=== PATIENT | male | born 1955 | race Caucasian/White ===

== ENCOUNTER 2017-07-09 22:08 | Inpatient (IN) | payer MEDICARE, MEDICAID ==
[~2017-07-09] VITALS: Ht 167.6 cm; Wt 89.5 kg
[~2017-07-09 22:08] MED LIST: ALBUTEROL INHAL17 GM IH; DOXYCYCLINE 10100 MG PO; FLAGYL500 MG PO; LEVAQUIN 750 M750 MG PO; PREDNISONE 20 M20 MG PO; TRAMADOL 50 MG50 MG PO; VENTOLIN HFA 1818 GM INH; [UNRECOGNIZED DRUG - REMARK]
[2017-07-09 22:09] VITALS: BP 119/48
[2017-07-09 22:32] LABS: WBC 2.4 thou/uL (4.0-11.0)
[2017-07-09 22:38] LABS: HEMOGLOBIN 7.9 gm/dL (14.0-18.0)
[2017-07-09 22:40] LABS: HEMATOCRIT 25.4 % (42.0-52.0); MCH 21.5 pg (26.0-34.0); MCV 69.5 fL (80.0-100.0); MPV 8.6 fl. (7.2-11.1); NUCLEATED RBCS 0 /100WBC; RBC 3.66 mil/uL (4.50-6.00); RDW-CV 22.8 % (10.5-14.5)
[2017-07-09 22:42] LABS: PLATELET COUNT* 36 thou/uL (150-400)
[2017-07-09 22:53] LABS: ANION GAP 7 mmol/L (7-16); BUN 12 mg/dL (7-18); CALCIUM 8.1 mg/dL (8.5-10.1); CHLORIDE 108 mmol/L (98-107); CO2 28 mmol/L (21-32); GLUCOSE 138 mg/dL (70-99); POTASSIUM 3.6 mmol/L (3.5-5.1); SODIUM 143 mmol/L (136-145)
[2017-07-09 22:54] LABS: ALBUMIN 2.8 g/dL (3.4-5.0); ALKALINE PHOSPHATASE 218 U/L (46-116); LIPASE 292 U/L (73-393); NT-PRO BRAIN NAT PEPTIDE 63 pg/mL (<300); SGOT 39 U/L (15-37); SGPT 24 U/L (30-65); TOTAL PROTEIN 7.1 g/dL (6.4-8.2); TROPONIN-I LEVEL <0.06 ng/mL (<0.06)
[2017-07-09 23:05] LABS: BE 1.6 mmol/L (-2 to +3); HCO3 25.5 mmol/L (22.0-26.0); PCO2 37.1 mmHg (35.0-45.0); PO2 87.1 mmHg (75.0-100.0); pH 7.455 (7.340-7.450)
[2017-07-09 23:52] LABS: URINE BLOOD NEGATIVE (Negative); URINE CLARITY CLEAR; URINE COLOR YELLOW; URINE GLUCOSE-RANDOM NEGATIVE (Negative); URINE KETONES 1+ (Negative); URINE LEUKOCYTES-REFLEX NEGATIVE (Negative); URINE NITRITE-REFLEX NEGATIVE (Negative); URINE PROTEIN NEGATIVE (Negative); URINE SPECIFIC GRAVITY >= 1.030 (1.005-1.030)
[2017-07-09 23:53] LABS: URINE BILIRUBIN 2+ (Negative)
[2017-07-09 23:55] LABS: AMP/METHAMP Negative (Negative); BARBITURATES Negative (Negative); BENZODIAZEPINES Negative (Negative); COCAINE Negative (Negative); METHADONE Negative (Negative); OPIATES Negative (Negative); PCP Negative (Negative); THC Negative (Negative)
[2017-07-10] VITALS (7 sets, daily range): BP systolic 115–150; BP diastolic 56–81
[2017-07-10 00:02] LABS: ICTOTEST (BILI CONFIRMATORY) Positive (Negative)
[2017-07-10 00:12] LABS: ABSOLUTE BASOPHILS 0.1 thou/uL (0.0-0.2); ABSOLUTE EOSINOPHILS 0.2 thou/uL (0.0-0.7); ABSOLUTE LYMPHOCYTES 0.8 thou/uL (0.8-5.3); ABSOLUTE MONOCYTES 0.1 thou/uL (0.0-1.2); ABSOLUTE NEUTROPHILS 1.2 thou/uL (1.6-8.1)
[2017-07-10 00:14] LABS: ANISOCYTOSIS 2+; HYPOCHROMASIA 2+; MICROCYTES 3+; PLATELET ESTIMATE DECREASED; POLYCHROMASIA 1+
[2017-07-10 00:15] LABS: TARGET CELLS Occasional
[2017-07-10 01:06] LABS: HEMATOCRIT 26.7 % (42.0-52.0); HEMOGLOBIN 8.1 gm/dL (14.0-18.0); MCH 21.4 pg (26.0-34.0); MCHC 30.5 g/dL (28.0-37.0); MCV 70.1 fL (80.0-100.0); MPV 9.2 fl. (7.2-11.1); RBC 3.81 mil/uL (4.50-6.00); RDW-CV 23.4 % (10.5-14.5)
[2017-07-10 01:15] LABS: WBC 1.3 thou/uL (4.0-11.0)
[2017-07-10 08:58] LABS: CHOLESTEROL 99 mg/dL (<200); HDL CHOLESTEROL 43 mg/dL (>40); LDL CHOLESTEROL 47 mg/dL (<100); TC:HDL 2.3 Ratio (Not establshd); TRIGLYCERIDE 48 mg/dL (<150); VLDL 10 mg/dL (<40)
[2017-07-10 09:01] LABS: SERUM ASSESSMENT Clear
--- NOTE | 2017-07-10 14:24 | EXE ---
[place] [address] STRESS ECHOCARDIOGRAM Name: JOSIAH KOHLI Room: [address] IN [facility]#: [id number] Admission: 07/09/17 Attend Phys: Tadeo Lopez, Discharge: Date of : 59 Date of Service: 07/10/17 1423 Report #: [id number] THIS REPORT FOR: //name// APPROVED REPORT Study performed: 07/10/2017 10:32:45 Exam: Dobutamine Stress Echo Indication: Chest pain Stress Nurse: Shi Okeefe RN Room #: [facility] Supervising Physician: Will Cano MD Status: routine Ht: 5 ft 6 in HR: 93 bpm BP: 144/72 mmHg Rhythm: NSR Medical History Cardiac Risk Factors: Smoking Procedure The patient underwent a Pharmacological Stress Test using Dobutamine. Blood pressure, heart rate, and EKG were monitored. An Echocardiogram was performed by certified ophthalmic technician in four stages in quad fashion. At peak stress, four selected images were obtained and placed side by side with resting images for comparison. Stress Test Details Stress Test: Pharmacological Stress Test using Dobutamine. Reason for pharmacologic stress test: physical limitation. HR Resting HR: 93 bpm Max Heart Rate (APMHR): 160 bpm Max HR Achieved: 136 bpm Target HR (85% APMHR): 136 bpm % of APMHR: 85 Recovery HR: 98 bpm HR response to stress: Normal HR response to stress BP Resting BP: 144/72 mmHg Max BP: 168/66 mmHg Recovery BP: 165/72 [place] [address] STRESS ECHOCARDIOGRAM Name: JOSIAH KOHLI Room: [address]#: [id number] Admission: 07/09/17 Attend Phys: Tadeo Lopez, Discharge: Date of : 59 Date of Service: 07/10/17 1423 Report #: [id number] Clinical Reason for Termination: Completed protocol Pre-Stress Echo The resting Echocardiogram showed normal left ventricular contractility with an estimated Ejection Fraction of about 55-60%. Normal wall motion in all segments on baseline images. Post-Stress Echo The stress Echocardiogram showed normal left ventricular contractility with an estimated Ejection Fraction of about >70%. Normal augmentation of wall motion in all segments on post stress images. Clinical Normal augmentation of myocardial wall segments using a 17 segment model. Conclusion Clinical Response: Non-ischemic Exercise Capacity: not assessed Stress ECG Response: Non-ischemic Stress Echo Images: Non-ischemic Other Information Study Quality: Good <ELECTRONICALLY SIGNED> By: Will Cano MD, FACC 07/10/17 1423 142 1423 Will Cano MD, FACC /INF
--- NOTE | 2017-07-10 15:08 | EKG ---
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 : 1955 Requested By: Rachel Gambino Order Number: [id number] MD: Will Cano Measurements Intervals [place] Rate: 95 P: 75 MS: 163 QRS: -72 QRSD: 145 T: 65 QT: 395 QTc: 497 Interpretive Statements Sinus rhythm RBBB and LAFB Baseline wander in lead(s) I,III,aVL,aVF Compared to ECG 03/08/2017 21:07:00 No significant changes Electronically Signed On 07-10-2017 15:08:13 CDT by Will Cano [email or web address] <ELECTRONICALLY SIGNED> By: Will Cano MD, [facility] 07/10/17 1508 2211 221 Will Caon MD, [facility] /EPI
== END 2017-07-10 18:38 | disposition home or self-care (01) | DRG 74 ==
LOC: M.ERS 22:08 → M.2W 23:34 → M.TBA-ER 23:34 → M.2W 23:38
PROVIDERS: Personal Emergency Response Attendant; ADMIT Internal Medicine
DX: M54.12 Radiculopathy, cervical region (principal); K76.6 Portal hypertension; D61.818 Other pancytopenia; I25.110 Atherosclerotic heart disease of native coronary artery with unstable angina pectoris; K70.30 Alcoholic cirrhosis of liver without ascites; B19.20 Unspecified viral hepatitis C without hepatic coma; I50.9 Heart failure, unspecified; M10.9 Gout, unspecified; F15.90 Other stimulant use, unspecified, uncomplicated; F10.20 Alcohol dependence, uncomplicated; F17.210 Nicotine dependence, cigarettes, uncomplicated; Z91.14 Patient's other noncompliance with medication regimen; Z79.899 Other long term (current) drug therapy

== ENCOUNTER 2018-06-10 03:21 | Inpatient (IN) | payer MEDICARE, OTHER, MEDICAID ==
[2018-06-10] VITALS (7 sets, daily range): BP systolic 127–162; BP diastolic 62–88
[~2018-06-10] VITALS: Ht 167.6 cm; Wt 77.6 kg
[2018-06-10 04:33] LABS: ABSOLUTE EOSINOPHILS 0.1 thou/uL (0.0-0.7); ABSOLUTE LYMPHOCYTES 0.7 thou/uL (0.8-5.3); ABSOLUTE MONOCYTES 0.2 thou/uL (0.0-1.2); ABSOLUTE NEUTROPHILS 1.1 thou/uL (1.6-8.1); EOSINOPHILS 3.7 %; HEMATOCRIT 32.9 % (42.0-52.0); HEMOGLOBIN 10.2 gm/dL (14.0-18.0); LYMPHOCYTES 34.1 %; MCH 24.3 pg (26.0-34.0); MCV 78.5 fL (80.0-100.0); MONOCYTES 9.6 %; NUCLEATED RBCS 0 /100WBC; PLATELET COUNT* 56 thou/uL (150-400); POLYS 50.6 %; RDW-CV 33.5 % (10.5-14.5); WBC 2.1 thou/uL (4.0-11.0)
[2018-06-10 04:41] LABS: APTT 32.2 Seconds (25.0-31.3); INR 1.3; PROTIME 13.5 Seconds (9.20-11.50)
[2018-06-10 05:21] LABS: ANION GAP 7 mmol/L (7-16); BUN 7 mg/dL (7-18); CALCIUM 7.5 mg/dL (8.5-10.1); CHLORIDE 109 mmol/L (98-107); CO2 26 mmol/L (21-32); CREATININE 0.7 mg/dL (0.6-1.3); GLUCOSE 92 mg/dL (70-99); SODIUM 142 mmol/L (136-145); TROPONIN-I LEVEL <0.06 ng/mL (<0.06)
[2018-06-10 05:22] LABS: ALBUMIN 2.5 g/dL (3.4-5.0); ALKALINE PHOSPHATASE 133 U/L (46-116); LIPASE 91 U/L (73-393); MAGNESIUM 1.4 mg/dL (1.8-2.4); NT-PRO BRAIN NAT PEPTIDE 79 pg/mL (<300); SGOT 41 U/L (15-37); SGPT 22 U/L (30-65); TOTAL BILIRUBIN 2.3 mg/dL (<0.1-1.0); TOTAL PROTEIN 6.8 g/dL (6.4-8.2)
[2018-06-10 06:26] LABS: PLATELET ESTIMATE DECREASED
[2018-06-10 06:27] LABS: POLYCHROMASIA 1+
[2018-06-10 06:28] LABS: ANISOCYTOSIS 1+; HYPOCHROMASIA 1+; MICROCYTES Occasional; OVALOCYTES Occasional; POIKILOCYTOSIS 2+; TARGET CELLS 2+
[2018-06-10 09:39] LABS: BE -1.6 mmol/L (-2 to +3); PCO2 31.7 mmHg (35.0-45.0); PO2 84.3 mmHg (75.0-100.0); pH 7.453 (7.340-7.450)
--- NOTE | 2018-06-10 11:28 | NUR ---
VSS, ASSUMED CARE IN THE AM, ASSESSEMENT PERFORMED AND CHARTED, FALL PRECAUTIONS IN PLACE AND CALL LIGHT IN REACH, PT IS VERY SLEEPY AND SEEMS TO BE CONFUSED AT TIMES, PT GOAL SI SAFETY AND IMPROVE POT AND MAG LABS, PT IS UP WITH STAND BY. ON RA AND IS TRACING SR ON THE MONITOR, PT DENIES ANY PAIN, WILL FOLLOW WITH PLAN OF CARE.
--- NOTE | 2018-06-10 12:00 | NUR ---
Pt was sound asleep when CM went to assess, will f/u later
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
--- NOTE | 2018-06-10 17:06 | EKG ---
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
[2018-06-11] VITALS (7 sets, daily range): BP systolic 95–141; BP diastolic 36–73
--- NOTE | 2018-06-11 04:39 | NUR ---
pt progressing towards goals. no acute changes overnight. pt stated he was feeling anxious b/c he needed nicotine. explained to pt he had a nicotine patch pt voiced understanding, gave one dose of ativan. he got up several times to the bathroom, failed to use call light multiple times, education received he voiced understanding. pt pants were changed and found pack of cigarettes and structural test engineer both iteams were given to security to hold tell pt is discharged. pt has slept most of the night. currently sleeping. call light in place. bed alarm on. bed to lowest position. will continue to monitor.
[2018-06-11 05:22] LABS: HEMATOCRIT 30.6 % (42.0-52.0); HEMOGLOBIN 9.5 gm/dL (14.0-18.0); MCH 24.1 pg (26.0-34.0); MCHC 30.9 g/dL (28.0-37.0); MCV 77.9 fL (80.0-100.0); MPV 9.9 fl. (7.2-11.1); RBC 3.93 mil/uL (4.50-6.00); RDW-CV 33.4 % (10.5-14.5); WBC 3.8 thou/uL (4.0-11.0)
[2018-06-11 05:34] LABS: ALBUMIN 2.2 g/dL (3.4-5.0); MAGNESIUM 1.7 mg/dL (1.8-2.4); TOTAL BILIRUBIN 1.4 mg/dL (<0.1-1.0)
[2018-06-11 05:55] LABS: CALCIUM 7.9 mg/dL (8.5-10.1); CREATININE 0.9 mg/dL (0.6-1.3); POTASSIUM 3.5 mmol/L (3.5-5.1); TOTAL PROTEIN 6.3 g/dL (6.4-8.2)
--- NOTE | 2018-06-11 13:51 | NUR ---
I HAVE REVIEWED THE STUDENT'S CHARTING.
--- NOTE | 2018-06-11 20:00 | NUR ---
RECEIVED REPORT AND ASSUMED CARE OF PT, ASSESSMENT COMPLETED. PT C/O TREMORS AND ANXIETY. NO SOB NOTED, ON RA, SITTING UPON SIDE OF BED. ABD SOFT. TELEMETRY ON SHOWING SR. WILL CONT TO MONITOR AND ASSIST NEEDED.
[2018-06-11 21:14] LABS: BF RBC <1000 /mm3; TOTAL CELL COUNT 268 /mm3
[2018-06-11 21:32] LABS: CLARITY CLEAR; TOTAL VOLUME 4900 ml
[2018-06-11 22:53] LABS: BF LYMPHOCYTES 42 %; BF MONOCYTES 54 %; BF POLYS 4 %; BF TISSUE 33 /100 WBC
[2018-06-11 22:54] LABS: SOURCE ASCITES
[2018-06-12] VITALS: BP 126/63
[2018-06-12 02:10] LABS: GLYCOHEMOGLOBIN (HGB A1C) 4.5 % (4.8-5.6)
[2018-06-12 04:27] LABS: HEMATOCRIT 31.8 % (42.0-52.0); HEMOGLOBIN 10.1 gm/dL (14.0-18.0); MCHC 31.8 g/dL (28.0-37.0); MCV 78.7 fL (80.0-100.0); RBC 4.04 mil/uL (4.50-6.00); RDW-CV 34.1 % (10.5-14.5); WBC 3.4 thou/uL (4.0-11.0)
[2018-06-12 04:44] LABS: ALBUMIN 2.1 g/dL (3.4-5.0); CALCIUM 7.8 mg/dL (8.5-10.1); CREATININE 0.8 mg/dL (0.6-1.3); MAGNESIUM 1.9 mg/dL (1.8-2.4); POTASSIUM 3.7 mmol/L (3.5-5.1); TOTAL BILIRUBIN 1.2 mg/dL (<0.1-1.0); TOTAL PROTEIN 6.2 g/dL (6.4-8.2)
--- NOTE | 2018-06-12 06:05 | NUR ---
AWAKE OCC DURING NIGHT. TO BR WITH SBA, GAIT STEADY. DENIES TREMORS OR ANXIETY AFTER MEDS GIVEN LAST EVENING. HAVING OCC MOIST NON-PROD COUGH. HS GOALS OF REST AND COMFORT ACHIEVED. HOURLY ROUNDING OBSERVED.
[2018-06-12 08:00] VITALS: BP 123/68
--- NOTE | 2018-06-12 08:00 | NUR ---
ASSUMED PT CARE AT 0700, PT SITTING UP IN BED, A&O X4, VISIBLE TREMORS IN HAND, PT STATES HE IS FEELING VERY ANXIOUS AND REQUESTING ATIVAN, PRN ATIVAN ON BOARD AND GIVEN. VSS, RA, SOLE STAINER TRACING SINUS RHYTHM WITH BBB. PT REFUSED LACTULOSE DISPITE EDUCATION ON IMPORTANCE OF MEDICATION. PT REQUESTING TO DC AND STATES HE DOES NOT WANT TO STOP DRINKING AND PLANS TO DO JUST THAT SOON HE LEAVES. WILL CONT POC.
[2018-06-12] MEDS ORDERED: ADVAIR HFA 230M12 GM INH (08:47)
[2018-06-12] MEDS ORDERED: OMEPRAZOLE 20 M20 M1 PO (08:47)
[2018-06-12] MEDS ORDERED: AZITHROMYCIN 2250 MG PO (08:47)
[2018-06-12] MEDS ORDERED: LASIX 40 MG TAB40 M2 PO (08:47)
[2018-06-12] MEDS ORDERED: PROPRANOLOL 1010 MG PO (08:47)
[2018-06-12] MEDS ORDERED: LACTULOSE20 GM/30 M PO (08:47)
[2018-06-12] MEDS ORDERED: VENTOLIN HFA 1818 GM INH (08:47)
[2018-06-12] MEDS ORDERED: MUCINEX600 MG PO (08:47)
[2018-06-12] MEDS ORDERED: SPIRONOLACTONE25 MG PO (08:47)
[2018-06-12] MEDS ORDERED: CEFDINIR300 MG PO (08:47)
[2018-06-12] MEDS ORDERED: SINGULAIR 10 MG10 M1 PO (08:47)
[2018-06-12] MEDS ORDERED: PREDNISONE 10 M10 MG PO (08:47)
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
[2018-06-12 10:57] VITALS: BP 123/68
--- NOTE | 2018-06-12 15:20 | NUR ---
PT DISCHARGED FROM UNIT AT APPROX 1520 VIA WHEELCHAIR WITH NURSING STAFF IN A CAB. EDUCATED ON ALL DISCHARGE INSTRUCTIONS INCLUDING MEDICATIONS AND FOLLOW UP APPTS, PT STATES UNDERSTANDING. HOURLY ROUNDING COMPLETED, IV AND FOOT TENDER REMOVED.
[2018-06-16 11:54] LABS: SOURCE ABDOMINAL
== END 2018-06-12 16:05 | disposition home health service (06) | DRG 441 ==
LOC: M.ERS 03:21 → M.2W 06:07 → M.TBA-ER 06:07 → M.2W 06:52
PROVIDERS: Family Medicine; Internal Medicine; ADMIT Internal Medicine
PROC: 0W9G3ZZ Drainage of Peritoneal Cavity, Percutaneous Approach (ICD-10-PCS; principal; 2018-06-12)
DX: K72.90 Hepatic failure, unspecified without coma (principal); J18.0 Bronchopneumonia, unspecified organism; G92 Toxic encephalopathy; J96.21 Acute and chronic respiratory failure with hypoxia; J96.22 Acute and chronic respiratory failure with hypercapnia; K76.6 Portal hypertension; D61.818 Other pancytopenia; I50.32 Chronic diastolic (congestive) heart failure; J44.0 Chronic obstructive pulmonary disease with (acute) lower respiratory infection; J44.1 Chronic obstructive pulmonary disease with (acute) exacerbation; K70.31 Alcoholic cirrhosis of liver with ascites; M10.9 Gout, unspecified; F17.210 Nicotine dependence, cigarettes, uncomplicated; B19.20 Unspecified viral hepatitis C without hepatic coma; E87.6 Hypokalemia; Z79.899 Other long term (current) drug therapy

== ENCOUNTER 2018-06-23 18:51 | Inpatient (IN) | payer MEDICARE, OTHER, MEDICAID ==
[~2018-06-23] VITALS: Ht 167.6 cm; Wt 84.8 kg
[2018-06-23 18:51] VITALS: BP 144/73
[~2018-06-23 18:51] MED LIST changes: +ADVAIR HFA 230M12 GM INH; +AZITHROMYCIN 2250 MG PO; +CEFDINIR300 MG PO; +LACTULOSE20 GM/30 M PO; +LASIX 40 MG TAB40 M2 PO; +MUCINEX600 MG PO; +OMEPRAZOLE 20 M20 M1 PO; +PREDNISONE 10 M10 MG PO; +PROPRANOLOL 1010 MG PO; +SINGULAIR 10 MG10 M1 PO; +SPIRONOLACTONE25 MG PO
[2018-06-23 19:39] LABS: BE -0.7 mmol/L (-2 to +3); PCO2 35.5 mmHg (35.0-45.0); pH 7.432 (7.340-7.450)
[2018-06-23 19:41] LABS: PO2 194.7 mmHg (75.0-100.0)
[2018-06-23 19:46] LABS: ABSOLUTE LYMPHOCYTES 1.1 thou/uL (0.8-5.3); ABSOLUTE MONOCYTES 0.4 thou/uL (0.0-1.2); BASOPHILS 0.8 %; EOSINOPHILS 0.8 %; HEMATOCRIT 35.1 % (42.0-52.0); HEMOGLOBIN 11.2 gm/dL (14.0-18.0); LYMPHOCYTES 24.1 %; MCH 26.5 pg (26.0-34.0); MCV 82.7 fL (80.0-100.0); MONOCYTES 8.8 %; NUCLEATED RBCS 0 /100WBC; POLYS 65.5 %; RBC 4.24 mil/uL (4.50-6.00); RDW-CV 31.8 % (10.5-14.5); WBC 4.6 thou/uL (4.0-11.0)
[2018-06-23 19:49] LABS: PLATELET COUNT* 39 thou/uL (150-400)
[2018-06-23 19:53] LABS: APTT 31.3 Seconds (25.0-31.3); INR 1.2; PROTIME 11.9 Seconds (9.20-11.50)
[2018-06-23 20:26] LABS: ANISOCYTOSIS 3+; HYPOCHROMASIA 1+; PLATELET ESTIMATE DECREASED; TARGET CELLS Occasional
[2018-06-23 20:30] LABS: MICROCYTES Occasional
[2018-06-23 20:48] LABS: ALBUMIN 2.4 g/dL (3.4-5.0); CALCIUM 7.7 mg/dL (8.5-10.1); CK-MB MASS 0.9 ng/mL (<0.5-3.6); CREATININE 0.6 mg/dL (0.6-1.3); MAGNESIUM 1.8 mg/dL (1.8-2.4); POTASSIUM 3.7 mmol/L (3.5-5.1); TOTAL BILIRUBIN 2.5 mg/dL (<0.1-1.0); TOTAL PROTEIN 6.8 g/dL (6.4-8.2)
[2018-06-23 22:30] VITALS: BP 166/90
[2018-06-23 22:51] VITALS: BP 153/82
[2018-06-23 23:00] VITALS: BP 157/81
[2018-06-24] VITALS (14 sets, daily range): BP systolic 81–171; BP diastolic 38–90
[2018-06-24] MEDS ORDERED: LASIX 20 MG TAB20 MG PO (07:45)
[2018-06-24] MEDS ORDERED: LACTULOSE20 GM/30 M PO (07:45)
[2018-06-24] MEDS ORDERED: PROPRANOLOL 1010 MG PO (07:45)
[2018-06-24] MEDS ORDERED: SPIRONOLACTONE25 MG PO (07:45)
[2018-06-24] MEDS ORDERED: OMEPRAZOLE 20 M20 M1 PO (07:45)
[2018-06-24 12:42] LABS: BF RBC 2172 /mm3; TOTAL CELL COUNT 163 /mm3
[2018-06-24 13:11] LABS: BF LYMPHOCYTES 23 %; BF MONOCYTES 72 %; BF POLYS 5 %; BF TISSUE 2 /100 WBC
[2018-06-24 13:12] LABS: CLARITY CLOUDY; SOURCE ASCITES; TOTAL VOLUME 7750 ml
--- NOTE | 2018-06-24 15:53 | EKG ---
[place] [address] ELECTROCARDIOGRAM REPORT Name: JOSIAH KOHLI Room: [address] ADM [place] .R.#: [id number] Admission: 06/23/18 Attend Phys: Tadeo Lopez MD Discharge: Date of : 59 Report #: [id number] THIS REPORT FOR: //name// [facility] ED Test Date: 2018-06-23 Test Time: 19:08:48 Pat Name: JOSIAH KOHLI Department: Room: [facility] Gender: M Gum Maker: AP : 1955 Requested By: Cornell Adam Order Number: [id number] MD: Greg Guzmán Measurements Intervals [place] Rate: 97 P: 75 VT: 147 QRS: -68 QRSD: 145 T: 60 QT: 411 QTc: 522 Interpretive Statements Sinus rhythm RBBB and LAFB Compared to ECG 06/10/2018 03:34:33 No significant changes Electronically Signed On 06-24-2018 15:53:40 CDT by Greg Guzmán [email or web address] <ELECTRONICALLY SIGNED> By: Greg Guzmán MD, [facility] 06/24/18 1553 [id number] Greg Guzmán MD, FAC /EPI
[2018-06-25] VITALS: BP 98/44
[2018-06-25 04:00] VITALS: BP 100/41
[2018-06-25] MEDS ORDERED: COMBIVENT RESPIM4 GM INH (07:34)
[2018-06-25] MEDS ORDERED: SINGULAIR 10 MG10 M1 PO (07:34)
[2018-06-25 08:53] VITALS: BP 100/41
--- NOTE | 2018-06-25 14:42 | PATH ---
[address] [address] PATHOLOGY RPT PROCEDURE Name: KAMILLAJOSIAH Room: [address] IN [facility]#: [id number] Admission: 06/23/18 Date of : 59 Discharge: 06/25/18 Report #: [id number] Path Case #: [id number] Note [facility] Accession Number: [id number] TESTS RESULT FLAG UNITS REF RANGE LAB Clinician Provided Cytology Information No. of containers..01 Other (Miscellaneous) Source: ASCITES DIAGNOSIS: 02 ASCITES NEGATIVE FOR MALIGNANT CELLS. MESOTHELIAL CELLS AND FEW INFLAMMATORY CELLS, PREDOMINANTLY CHRONIC. THIS INTERPRETATION INCLUDES EVALUATION OF A CELL BLOCK. Signed out by: 02 Clifford Núñez MD, Pathologist NPI- [id number] Performed by: 01 Sara Escamilla, Client Experience Specialist ([facility]) Gross description: 01 100ML, DARK YELLOW, CLOUDY /LCS FLAG LEGEND: L-Low Normal,H-High Normal,LL-Alert Low,HH-Alert High <-Panic Low,>-Panic High,A-Abnormal,AA-Critical Abnormal Performed at: [address] [place] [address] Ervin Rivera MD, [address] [place] [address] [address] [place] [address] Clifford Núñez MD, Specimen Comment: A courtesy copy of this report has been sent to Specimen Comment: [phone]. Specimen Comment: Report sent to Performed at: [address], [place], [place] [id number] MD Ervin Rivera MD Phone: [phone]
[2018-06-27 09:39] LABS: SOURCE ABDOMINAL
== END 2018-06-25 11:40 | disposition hospice, inpatient (51) | DRG 441 ==
LOC: M.ERS 18:51 → M.ICU 21:30 → M.TBA-ER 21:30 → M.ICU 22:31
PROVIDERS: Nurse Practitioner Psychiatric/Mental Health; ADMIT Internal Medicine
PROC: 0W9G3ZZ Drainage of Peritoneal Cavity, Percutaneous Approach (ICD-10-PCS; principal; 2018-06-24)
PROC: 30233R1 Transfusion of Nonautologous Platelets into Peripheral Vein, Percutaneous Approach (ICD-10-PCS; principal; 2018-06-24)
DX: K72.00 Acute and subacute hepatic failure without coma (principal); J96.00 Acute respiratory failure, unspecified whether with hypoxia or hypercapnia; R65.11 Systemic inflammatory response syndrome (SIRS) of non-infectious origin with acute organ dysfunction; R18.8 Other ascites; I50.32 Chronic diastolic (congestive) heart failure; K76.6 Portal hypertension; D61.818 Other pancytopenia; J44.9 Chronic obstructive pulmonary disease, unspecified; I11.0 Hypertensive heart disease with heart failure; F10.10 Alcohol abuse, uncomplicated; Y90.9 Presence of alcohol in blood, level not specified; F17.210 Nicotine dependence, cigarettes, uncomplicated; F17.200 Nicotine dependence, unspecified, uncomplicated; K74.60 Unspecified cirrhosis of liver; Z66 Do not resuscitate; Z79.2 Long term (current) use of antibiotics; Z91.14 Patient's other noncompliance with medication regimen; Z79.899 Other long term (current) drug therapy

== ENCOUNTER 2018-08-06 23:24 | Inpatient (IN) | payer MEDICARE, OTHER, MEDICAID ==
[~2018-08-06] VITALS: Ht 167.6 cm; Wt 86.7 kg
[~2018-08-06 23:24] MED LIST changes: +COMBIVENT RESPIM4 GM INH; +LASIX 20 MG TAB20 MG PO
[2018-08-06 23:28] VITALS: BP 142/78
[2018-08-06 23:48] LABS: ABSOLUTE EOSINOPHILS 0.1 thou/uL (0.0-0.7); ABSOLUTE LYMPHOCYTES 0.9 thou/uL (0.8-5.3); ABSOLUTE MONOCYTES 0.5 thou/uL (0.0-1.2); ABSOLUTE NEUTROPHILS 1.1 thou/uL (1.6-8.1); BASOPHILS 0.7 %; EOSINOPHILS 5.5 %; HEMATOCRIT 37.1 % (42.0-52.0); LYMPHOCYTES 34.3 %; MCH 26.9 pg (26.0-34.0); MCHC 32.3 g/dL (28.0-37.0); MCV 83.4 fL (80.0-100.0); MONOCYTES 18.3 %; MPV 8.1 fl. (7.2-11.1); NUCLEATED RBCS 0 /100WBC; PLATELET COUNT* 67 thou/uL (150-400); POLYS 41.2 %; RBC 4.45 mil/uL (4.50-6.00); WBC 2.6 thou/uL (4.0-11.0)
[2018-08-06 23:56] LABS: ANION GAP 6 mmol/L (7-16); BUN 5 mg/dL (7-18); CALCIUM 7.6 mg/dL (8.5-10.1); CHLORIDE 106 mmol/L (98-107); CO2 29 mmol/L (21-32); CREATININE 0.6 mg/dL (0.6-1.3); GLUCOSE 91 mg/dL (70-99); POTASSIUM 3.5 mmol/L (3.5-5.1); SODIUM 141 mmol/L (136-145)
[2018-08-07] VITALS (7 sets, daily range): BP systolic 108–180; BP diastolic 59–96
[2018-08-07 00:09] LABS: ALBUMIN 2.3 g/dL (3.4-5.0); ALKALINE PHOSPHATASE 141 U/L (46-116); LIPASE 157 U/L (73-393); SGOT 36 U/L (15-37); SGPT 16 U/L (30-65); TOTAL BILIRUBIN 1.5 mg/dL (<0.1-1.0); TROPONIN-I LEVEL <0.06 ng/mL (<0.06)
[2018-08-07 00:24] LABS: INR 1.2; PROTIME 12.5 Seconds (9.20-11.50)
[2018-08-07 03:12] LABS: URINE BILIRUBIN NEGATIVE (Negative); URINE BLOOD NEGATIVE (Negative); URINE CLARITY CLEAR; URINE COLOR YELLOW; URINE GLUCOSE-RANDOM NEGATIVE (Negative); URINE KETONES NEGATIVE (Negative); URINE LEUKOCYTES-REFLEX NEGATIVE (Negative); URINE NITRITE-REFLEX NEGATIVE (Negative); URINE PROTEIN NEGATIVE (Negative); URINE SPECIFIC GRAVITY <= 1.005 (1.005-1.030)
--- NOTE | 2018-08-07 08:00 | NUR ---
ASSUME CARE OF PT. PT RESTING IN BED. REPORTS ABD PAIN. NSR ON MONITOR. IVF INFUSING. VOIDING PER URINAL
[2018-08-07 11:22] LABS: AMP/METHAMP Negative (Negative); BARBITURATES Negative (Negative); BENZODIAZEPINES Negative (Negative); COCAINE Negative (Negative); METHADONE Negative (Negative); OPIATES Negative (Negative); PCP Negative (Negative); THC Negative (Negative)
--- NOTE | 2018-08-07 17:38 | EKG ---
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: : 1955 Requested By: Osmar Ghotra Order Number: [id number] MD: Greg Guzmán Measurements Intervals [place] Rate: 93 P: 81 [place]: 156 QRS: -77 QRSD: 138 T: 66 QT: 407 QTc: 507 Interpretive Statements Sinus rhythm RBBB and LAFB ST elevation, consider inferior injury Baseline wander in lead(s) I,III,aVL,aVF,V1 Compared to ECG 06/23/2018 19:08:48 ST (T wave) deviation now present Myocardial infarct finding now present Electronically Signed On 08-07-2018 17:37:57 CDT by Greg Guzmán [email or web address] <ELECTRONICALLY SIGNED> By: Greg Guzmán MD, FACC 08/07/18 1737 235 235 Greg Guzmán MD, FAC /EPI
[2018-08-08 04:00] VITALS: BP 119/70
[2018-08-08 05:04] LABS: ABSOLUTE EOSINOPHILS 0.1 thou/uL (0.0-0.7); ABSOLUTE LYMPHOCYTES 0.4 thou/uL (0.8-5.3); ABSOLUTE MONOCYTES 0.4 thou/uL (0.0-1.2); ABSOLUTE NEUTROPHILS 1.5 thou/uL (1.6-8.1); NUCLEATED RBCS 0 /100WBC; PLATELET COUNT* 54 thou/uL (150-400); WBC 2.5 thou/uL (4.0-11.0)
[2018-08-08 05:08] LABS: BASOPHILS 1.4 %; EOSINOPHILS 5.6 %; HEMATOCRIT 34.8 % (42.0-52.0); HEMOGLOBIN 11.5 gm/dL (14.0-18.0); LYMPHOCYTES 14.8 %; MCH 27.7 pg (26.0-34.0); MCHC 33.1 g/dL (28.0-37.0); MCV 83.6 fL (80.0-100.0); MONOCYTES 17.8 %; MPV 8.9 fl. (7.2-11.1); POLYS 60.4 %; RBC 4.17 mil/uL (4.50-6.00); RDW-CV 17.2 % (10.5-14.5)
[2018-08-08 05:23] LABS: MAGNESIUM 1.5 mg/dL (1.8-2.4); PHOSPHORUS* 2.6 mg/dL (2.5-4.9)
--- NOTE | 2018-08-08 05:26 | NUR ---
ASSUMED CARE OF PT AFTER REPORT AT 1930. PT A&OX4. VSS. PHYSICAL ASSESSMENT COMPLETED AND CHARTED. PT ON O2 AT 2L NC. PT TRACING SR/ST/BBB ON TELE. PT UPSTANDBY TO RESTROOM. PT COMPLAINED OF ABDOMINAL PAIN- PAIN MEDS GIVEN PER MAR. PT RESTED WELL ON BED. HOURLY ROUNDING OBSERVED. CALL LIGHT WITHIN REACH.
[2018-08-08 05:36] LABS: CALCIUM 7.4 mg/dL (8.5-10.1); CREATININE 0.5 mg/dL (0.6-1.3); POTASSIUM 3.4 mmol/L (3.5-5.1)
[2018-08-08 08:00] VITALS: BP 123/64
[2018-08-08 12:23] VITALS: BP 129/71
[2018-08-08 12:54] LABS: CALCIUM 7.9 mg/dL (8.5-10.1); CREATININE 0.6 mg/dL (0.6-1.3); MAGNESIUM 1.6 mg/dL (1.8-2.4); POTASSIUM 3.3 mmol/L (3.5-5.1)
--- NOTE | 2018-08-08 13:39 | NUR ---
DIOMEDES HAS DECIDED TO LEAVE AMA. THE BENEFITS OF CONTIUED MEDICAL THERAPIES AND THE POTENTIAL FOR HARM, INCLUDING , WERE DISCUSSED WITH THE PATIENT. HE PERSISTED TO LEAVE AMA, A CAB HAS BEEN CALLED FOR HIM TO RETURN HIM HOME SAFELY.
--- NOTE | 2018-08-08 14:10 | NUR ---
Pt leaving AMA
--- NOTE | 2018-08-09 07:27 | D ---
[address] [address] DISCHARGE SUMMARY Name: JOSIAH KOHLI Room: [address]#: [id number] Admission: 08/07/18 Attend Phys: Juliano Collazo MD Discharge: 08/08/18 Date of : 59 Report #: [id number] THIS REPORT FOR: //name// CC: EMILY physician/PCP Juliano Collazo DATE OF SERVICE: 08/08/2018 DISCHARGE DIAGNOSES: Umbilical cellulitis with draining, umbilical hernia, ascites, alcohol intoxication, hypomagnesemia, hypokalemia, liver failure, appendicitis, obstipation, acute renal failure with hypoxia, chronic obstructive pulmonary disease, hep C, chronic congestive heart failure, and hypertension. HOSPITAL COURSE: The patient is a 63-year-old gentleman who presented to us here for incarcerated hernia, sepsis, and cellulitis. He was admitted, Surgery was consulted, did not think he needs intervention for his hernia. He was placed on antibiotics. Also had paracentesis, given the significant ascites. I saw him this morning and he was complaining of abdominal pain and told me that he was wanting to go home. Discussed with him that he needs to stay as he will need antibiotics and also electrolyte replacement. He just went back to sleep after our conversation. By afternoon, the patient apparently has left AMA. <ELECTRONICALLY SIGNED> By: Kassidy Alexandre MD 08/09/18 0727 [id number] Alexandre MD /willard
[2018-08-11 07:05] LABS: HEPATITIS B SURFACE AG Negative (Negative)
--- NOTE | 2018-08-12 16:55 | NUR ---
WOUND CARE NOTE: CONSULT FOR ABD WOUND RECEIVED PT LEFT AMA BEFORE COULD BE SEEN
--- NOTE | 2018-08-13 16:01 | PATH ---
[address] [address] PATHOLOGY RPT PROCEDURE Name: KOHLIJOSIAH Room: [address]#: [id number] Admission: 08/07/18 Date of : 59 Discharge: 08/08/18 Report #: [id number] Path Case #: [id number] Note [facility] Accession Number: [id number] TESTS RESULT FLAG UNITS REF RANGE LAB Clinician Provided Cytology Information No. of containers..01 Other (Miscellaneous) Source: ASCITES DIAGNOSIS: 02 ASCITES NEGATIVE FOR MALIGNANT CELLS. MESOTHELIAL CELLS AND FEW INFLAMMATORY CELLS, PREDOMINANTLY CHRONIC. THIS INTERPRETATION INCLUDES EVALUATION OF A CELL BLOCK. Signed out by: 02 Clifford Núñez MD, Pathologist NPI- [id number] Performed by: 01 Shay Leach, Installer Metal Flooring ([facility]) Gross description: 01 30ML, YELLOW, CLEAR /LCS FLAG LEGEND: L-Low Normal,H-High Normal,LL-Alert Low,HH-Alert High <-Panic Low,>-Panic High,A-Abnormal,AA-Critical Abnormal Performed at: [address] [place] [address] Ervin Rivera MD, [address] [place] [address] [facility], [place] [address] Clifford Núñez MD, Specimen Comment: A courtesy copy of this report has been sent to Specimen Comment: [phone]. Specimen Comment: Report sent to DR MONTALVO Performed at: [address], [place], [place] [address] MD Ervin Rivera MD Phone: [phone]
--- NOTE | 2018-08-14 11:43 | CON ---
[facility] [address] [place] [address] CONSULTATION Name: JOSIAH KOHLI Room: [address] IN .R.#: [id number] Admission: 08/07/18 Attend Phys: Juliano Collazo MD Discharge: 08/08/18 Date of : 59 Report #: [id number] THIS REPORT FOR: //name// CC: Jermain De DO [facility] physician/PCP Juliano Collazo MD DATE OF SERVICE: 08/07/2018 REFERRING PHYSICIAN: Juliano Collazo M.D. REASON FOR CONSULTATION: Abdominal pain and chronic liver disease. IMPRESSION: 1. Decompensated liver disease secondary to alcohol and chronic hepatitis C infection. 2. Continued alcohol abuse with no plans to discontinue the same. 3. Ulcerated and ischemic appearing umbilical hernia for which the patient is not a good surgical candidate for the same. 4. Pancytopenia and ascites secondary to portal hypertension. 5. Medication noncompliance. 6. Physician noncompliance. RECOMMENDATIONS: 1. The patient had almost 10 liters of fluid taken off of his abdomen today and his belly is lot more softer than previously. 2. We will begin the patient on diuretics to help keep his ascites under control. However, that assumes that the patient would actually take the medications that are prescribed as directed. I would not go beyond Aldactone 100 mg and Lasix 40 mg until he demonstrates that he will be compliant with this regimen, which would also include him being on 2 g sodium restricted diet. 3. The patient needs to discontinue alcohol altogether, but this is not likely to happen as he has already told to Dr. De that he will plan to continue to drink. 4. As far as management of his ulcerated fat containing umbilical hernia, I have to defer the recommendation of surgery. I agree with Dr. De that he is a very poor operative candidate due to his underlying liver disease (MELD score of 10 and a Child-Ambrosio class C), but I am not sure what can be done for this ulcerative lesion other than wound management. Again, I will defer that to Surgery for recommendations regarding the same. 5. The patient is not a candidate for treatment of his hepatitis C as he has history of noncompliance and we are not going to start him on medications as he is not going to take. 6. He states he wants to do nothing and would like to go back to hospice. This may be his best option. However, I would doubt that [place] [address] CONSULTATION Name: JOSIAH KOHLI Room: [address]#: [id number] Admission: 08/07/18 Attend Phys: Juliano Collazo MD Discharge: 08/08/18 Date of : 59 Report #: [id number] he continued alcohol abuse. I am afraid there is very little we can do for him as he does not want to do anything for himself. We will be available if the patient changes his mind and wants assistance with his care. Otherwise, we will not plan on seeing him as an outpatient. HISTORY OF PRESENT ILLNESS: The patient is a 63-year-old white male with decompensated liver disease secondary to chronic alcohol abuse and continued use as well as chronic hepatitis C, who presented to the emergency room with complaints of diffuse abdominal pain and pain related to his umbilical hernia. He presented to the emergency room with complaints of tenderness, warmth and drainage around the umbilical hernia, and at time of ER, he was currently intoxicated. He has had this hernia off and on for about 6 months and it began worsening over the last month. He has also had some issues with not going to the bathroom. It is unclear what was actually done because the patient is not communicative when I came to interview him, so most of the history is obtained from the patient's other records from the history and physical and surgical consultation, etc. ALLERGIES: None. MEDICATIONS: Not known, but it appears he probably does not take anything. He is supposed to be taking spironolactone, lactulose, omeprazole, ipratropium bromide, albuterol and Advair. PAST MEDICAL HISTORY: Remarkable for decompensated liver disease secondary to chronic alcohol abuse and hepatitis C with advanced liver disease. He has history of diastolic congestive heart failure with an ejection fraction of 70%. He has history of chronic tobacco use. He has had previous umbilical hernia repair. He has pancytopenia secondary to portal hypertension. He has underlying hypertension and COPD. SOCIAL HISTORY: The patient continues to smoke up to a pack per day, drinks at least 12-pack a day of beer. FAMILY HISTORY: Not known. PHYSICAL EXAMINATION: GENERAL: Revealed ill-appearing 63-year-old gentleman who appears much older than his stated age. CARDIOPULMONARY: Revealed irregular rhythm. LUNGS: Clear with diminished breath sounds at the bases. ABDOMEN: Soft, nondistended. He has an ulcerated umbilical hernia with secondary infection. He has 2+ peripheral edema. LABORATORY DATA: From admission revealed a white count 2.6, hemoglobin 12.0, platelet count 67,000, MCV is 83.4 and RDW is 18.0. [place] [address] CONSULTATION Name: JOSIAH KOHLI Room: [address]#: [id number] Admission: 08/07/18 Attend Phys: Juliano Collazo MD Discharge: 08/08/18 Date of : 59 Report #: [id number] Sodium is 141, potassium 3.5, chloride 106, and bicarbonate 29. His BUN is 5, creatinine 0.6 for GFR of 137. Total bilirubin is 1.5, alkaline phosphatase 141, AST 36, ALT 16, his albumin is only 2.3 and total protein 7.0. His protime is 12.5 and his INR is 1.2. CT scan of the abdomen and pelvis revealed a nodular liver compatible with cirrhosis with marked splenomegaly. There is large amount of intra-abdominal ascites. He also has evidence for a ventral hernia containing ascites and small amount of intra-abdominal fat. There is a small layering gallstones, which are calcified. There are no evidence of bowel obstruction, ileus or free air. DISCUSSION: At the present time, there is very little that can be done. Of course, he does not want to do anything for himself. I am not certain that there is anything we can offer him that he is going to want to accept at this time. We will be available at this point in time, but I have no plans for him to follow up with us at this point. <ELECTRONICALLY SIGNED> By: Ibrahima Rios DO 08/14/18 1143 00 DO natasha Gracia
== END 2018-08-08 14:21 | disposition left against medical advice (07) | DRG 871 ==
LOC: M.ERS 23:24 → M.TBA-ER 08-07 01:49 → M.2W 08-07 01:49
PROVIDERS: Emergency Medicine Emergency Medical Services; Internal Medicine; Internal Medicine Gastroenterology; ADMIT Family Medicine
PROC: 0W9G3ZZ Drainage of Peritoneal Cavity, Percutaneous Approach (ICD-10-PCS; principal; 2018-08-07)
DX: A41.9 Sepsis, unspecified organism (principal); J96.01 Acute respiratory failure with hypoxia; D61.818 Other pancytopenia; K42.0 Umbilical hernia with obstruction, without gangrene; L03.316 Cellulitis of umbilicus; R18.8 Other ascites; I50.32 Chronic diastolic (congestive) heart failure; K76.6 Portal hypertension; F10.129 Alcohol abuse with intoxication, unspecified; K74.60 Unspecified cirrhosis of liver; M10.9 Gout, unspecified; J44.9 Chronic obstructive pulmonary disease, unspecified; K59.00 Constipation, unspecified; I11.0 Hypertensive heart disease with heart failure; Z53.21 Procedure and treatment not carried out due to patient leaving prior to being seen by health care provider; E83.42 Hypomagnesemia; E87.6 Hypokalemia; K72.90 Hepatic failure, unspecified without coma; K37 Unspecified appendicitis; B19.20 Unspecified viral hepatitis C without hepatic coma; F17.210 Nicotine dependence, cigarettes, uncomplicated; Z91.14 Patient's other noncompliance with medication regimen; Z91.19 Patient's noncompliance with other medical treatment and regimen

== ENCOUNTER 2018-10-04 01:04 | Inpatient (IN) | payer MEDICARE, OTHER, MEDICAID ==
[2018-10-04] VITALS (55 sets, daily range): BP systolic 69–128; BP diastolic 28–65
[~2018-10-04] VITALS: Ht 167.6 cm; Wt 81.2 kg
--- NOTE | ~2018-10-04 | CON ---
[address] [address] CONSULTATION Name: JOSIAH KOHLI Room: [address] IN .R.#: [id number] Admission: 10/04/18 Attend Phys: Cat Patricia MD Discharge: Date of : 59 Report #: [id number] THIS REPORT FOR: //name// CC: EMILY physician/PCP Cat Patricia DATE OF SERVICE: 10/05/2018 INFECTIOUS DISEASES CONSULTATION REASON FOR CONSULTATION: I was asked to evaluate concerning fever and sepsis. 1. HISTORY OF PRESENT ILLNESS: The patient is a 63-year-old with underlying history of alcoholic liver disease with cirrhosis who was hospitalized on 10/04/2018 with alcoholic intoxication. Despite multiple recommendations for discontinuation of alcohol and offering of assistance, the patient has refused and continues to drink on a daily basis. He is admitted through the ER with now temperature up to 103 degrees. He underwent paracentesis of a large amount of ascites. A 8.5 liters was aspirated. Subsequently, he developed hypotension, is now on vasopressors. Blood cultures have revealed gram-positive cocci and he was placed on vancomycin and ceftriaxone. He continues to have abdominal discomfort. He has a known ventral hernia in the periumbilical region. Denies any cough or sputum. No chest pain. No nausea or vomiting. No diarrhea reported. REVIEW OF SYSTEMS: A 10-point review of systems was negative other than what has been described above. The patient was a poor historian in general. ALLERGIES: None known. MEDICATIONS: As noted on his MAR, now on vancomycin and ceftriaxone. PAST MEDICAL HISTORY: Alcoholic and hepatitis C, liver disease with cirrhosis, diastolic heart failure, gout, ventral herniorrhaphy, portal hypertension, pancytopenia, hypertension, COPD. FAMILY HISTORY: Noncontributory. SOCIAL HISTORY: Smoker of cigarettes, daily alcohol intake, reported 12 pack of beer a day. The patient states he has been drinking since the age of [age] years old. PHYSICAL EXAMINATION: VITAL SIGNS: Currently afebrile, blood pressure now stable on Levophed drip. Has a right femoral central venous catheter in place. SKIN: With several excoriations. [place] [address] CONSULTATION Name: JOSIAH KOHLI Room: [address] IN [facility]#: [id number] Admission: 10/04/18 Attend Phys: Cat Patricia MD Discharge: Date of : 59 Report #: [id number] LYMPH: Without palpable adenopathy. EYES: Without scleral icterus. MOUTH: Without mucositis. NECK: Supple, with no thyromegaly or mass. LUNGS: Clear. HEART: Regular without murmur, gallop or rub. ABDOMEN: Distended, fluid wave consistent with ascites, diffuse tenderness. Positive bowel sounds. Periumbilical hernia, which was reducible. No palpable mass or hepatosplenomegaly. EXTREMITIES: Without clubbing, cyanosis or edema. NEUROLOGIC: Cranial nerves intact. Muscle strength symmetric bilaterally. Sensation intact. Mood lethargic and flat. LABORATORY DATA: Blood cultures 1 of 2 showing gram-positive cocci, identification pending. Hemoglobin 9, WBC 3.8, platelet count 46,000, 65% neutrophils, 8% bands. Sodium 138, potassium 3.6, bicarbonate 25, creatinine 0.8. Peritoneal fluid analysis, less than 20 neutrophils. Lactate 1.4. Urinalysis unremarkable. Drug screen negative. Alcohol level 36. Sodium 133, potassium 3, creatinine 1, bilirubin 1.7, AST 141, ALT 63, alkaline phosphatase 93. Ammonia 20. BNP 1375. IMPRESSION: A 63-year-old who presents with alcohol intoxication, cirrhosis and ascites along with fever and gram-positive cocci bacteremia. Source of his bacteremia is yet to be determined. He developed shock, likely hypovolemic in addition to his sepsis. A 8.5 liters of paracentesis accomplished prior to the drop in pressure. The patient continues to have abdominal tenderness without positive SBP parameters. He does have underlying chronic liver disease with cirrhosis and pancytopenia due to portal hypertension. I would question whether he has varices as well. RECOMMENDATIONS: Continue broad antibiotic coverage, pending culture results. Continue ICU support. Recommend cessation from alcohol. We will make adjustments in his antibiotics pending culture results. By: 1557 [id number] Mackenzie MD /nt
[2018-10-04 01:46] LABS: BE -0.2 mmol/L (-2 to +3); PCO2 31.3 mmHg (35.0-45.0); pH 7.481 (7.340-7.450)
[2018-10-04 01:52] LABS: PO2 29.4 mmHg (75.0-100.0)
[2018-10-04 02:13] LABS: MCH 28.1 pg (26.0-34.0); MCHC 33.2 g/dL (28.0-37.0); MCV 84.8 fL (80.0-100.0); MPV 8.1 fl. (7.2-11.1); NUCLEATED RBCS 0 /100WBC; RBC 3.18 mil/uL (4.50-6.00); RDW-CV 21.6 % (10.5-14.5); WBC 2.6 thou/uL (4.0-11.0)
[2018-10-04 02:15] LABS: ANION GAP 9 mmol/L (7-16); BUN 10 mg/dL (7-18); CALCIUM 7.5 mg/dL (8.5-10.1); CHLORIDE 99 mmol/L (98-107); CO2 25 mmol/L (21-32); GLUCOSE 119 mg/dL (70-99); PLATELET COUNT* 39 thou/uL (150-400); SODIUM 133 mmol/L (136-145)
[2018-10-04 02:16] LABS: APTT 36.4 Seconds (25.0-31.3); INR 1.6; PROTIME 16.3 Seconds (9.20-11.50)
[2018-10-04 02:26] LABS: ALBUMIN 2.1 g/dL (3.4-5.0); ALKALINE PHOSPHATASE 93 U/L (46-116); AMMONIA 20 umol/L (11-32); MAGNESIUM 1.3 mg/dL (1.8-2.4); NT-PRO BRAIN NAT PEPTIDE 1375 pg/mL (<300); SGOT 141 U/L (15-37); SGPT 63 U/L (30-65); TOTAL BILIRUBIN 1.7 mg/dL (<0.1-1.0); TOTAL PROTEIN 7.3 g/dL (6.4-8.2); TROPONIN-I LEVEL <0.06 ng/mL (<0.06)
[2018-10-04 03:22] LABS: ABSOLUTE LYMPHOCYTES 0.2 thou/uL (0.8-5.3); ABSOLUTE MONOCYTES 0.1 thou/uL (0.0-1.2); ABSOLUTE NEUTROPHILS 2.3 thou/uL (1.6-8.1)
[2018-10-04 03:23] LABS: ANISOCYTOSIS 2+; HYPOCHROMASIA 1+; LARGE PLATELETS FEW; PLATELET ESTIMATE DECREASED; POLYCHROMASIA 1+
[2018-10-04 04:25] LABS: URINE BILIRUBIN NEGATIVE (Negative); URINE BLOOD NEGATIVE (Negative); URINE CLARITY CLEAR; URINE COLOR YELLOW; URINE GLUCOSE-RANDOM NEGATIVE (Negative); URINE KETONES NEGATIVE (Negative); URINE LEUKOCYTES-REFLEX NEGATIVE (Negative); URINE NITRITE-REFLEX NEGATIVE (Negative); URINE PROTEIN NEGATIVE (Negative); URINE SPECIFIC GRAVITY <= 1.005 (1.005-1.030)
[2018-10-04 04:31] LABS: AMP/METHAMP Negative (Negative); BARBITURATES Negative (Negative); BENZODIAZEPINES Negative (Negative); COCAINE Negative (Negative); METHADONE Negative (Negative); OPIATES Negative (Negative); PCP Negative (Negative); THC Negative (Negative)
[2018-10-04 08:05] LABS: POTASSIUM 3.4 mmol/L (3.5-5.1); TROPONIN-I LEVEL <0.06 ng/mL (<0.06)
[2018-10-04 16:06] LABS: BF RBC 2241 /mm3; TOTAL CELL COUNT 165 /mm3
[2018-10-04 16:55] LABS: CLARITY SLIGHTLY HAZY; TOTAL VOLUME 8360 ml
[2018-10-04 17:01] LABS: SOURCE ABDOMINAL
[2018-10-04 17:19] LABS: BF LYMPHOCYTES 84 %; BF MONOCYTES 4 %; BF POLYS 12 %; BF TISSUE 33 /100 WBC
[2018-10-04 17:44] LABS: BE -5.2 mmol/L (-2 to +3); PCO2 24.2 mmHg (35.0-45.0); PO2 85.3 mmHg (75.0-100.0); pH 7.479 (7.340-7.450)
[2018-10-05] VITALS (69 sets, daily range): BP systolic 84–132; BP diastolic 28–71
[2018-10-05 05:17] LABS: RDW-CV 21.6 % (10.5-14.5); WBC 3.8 thou/uL (4.0-11.0)
[2018-10-05 05:28] LABS: CALCIUM 7.2 mg/dL (8.5-10.1); CREATININE 0.8 mg/dL (0.6-1.3); MAGNESIUM 1.7 mg/dL (1.8-2.4); POTASSIUM 3.6 mmol/L (3.5-5.1)
[2018-10-05 05:39] LABS: MCHC 33.1 g/dL (28.0-37.0); MCV 84.5 fL (80.0-100.0); MPV 9.8 fl. (7.2-11.1); NUCLEATED RBCS 0 /100WBC
[2018-10-05 06:23] LABS: PLATELET COUNT* 46 thou/uL (150-400)
[2018-10-05 07:53] LABS: ABSOLUTE LYMPHOCYTES 0.5 thou/uL (0.8-5.3); ABSOLUTE MONOCYTES 0.5 thou/uL (0.0-1.2); ABSOLUTE NEUTROPHILS 2.8 thou/uL (1.6-8.1)
[2018-10-05 07:54] LABS: HYPOCHROMASIA 2+; PLATELET ESTIMATE DECREASED; TARGET CELLS 1+
[2018-10-05 07:57] LABS: MICROCYTES 1+; TOXIC GRANULATION 1+
[2018-10-06] VITALS (24 sets, daily range): BP systolic 83–129; BP diastolic 40–72
[2018-10-06 04:01] LABS: BASOPHILS 1.1 %; EOSINOPHILS 2.7 %; HEMATOCRIT 25.2 % (42.0-52.0); HEMOGLOBIN 8.2 gm/dL (14.0-18.0); LYMPHOCYTES 19.2 %; MCH 27.2 pg (26.0-34.0); MCHC 32.5 g/dL (28.0-37.0); MCV 83.8 fL (80.0-100.0); MONOCYTES 22.4 %; MPV 8.8 fl. (7.2-11.1); NUCLEATED RBCS 0 /100WBC; POLYS 54.6 %; RBC 3.01 mil/uL (4.50-6.00); RDW-CV 21.4 % (10.5-14.5)
[2018-10-06 04:20] LABS: ABSOLUTE LYMPHOCYTES 0.3 thou/uL (0.8-5.3); ABSOLUTE MONOCYTES 0.4 thou/uL (0.0-1.2)
[2018-10-06 04:23] LABS: PLATELET COUNT* 45 thou/uL (150-400); WBC 1.8 thou/uL (4.0-11.0)
[2018-10-06 05:04] LABS: CALCIUM 7.3 mg/dL (8.5-10.1); CREATININE 0.8 mg/dL (0.6-1.3); MAGNESIUM 1.4 mg/dL (1.8-2.4); PHOSPHORUS* 1.6 mg/dL (2.5-4.9); POTASSIUM 3.3 mmol/L (3.5-5.1)
--- NOTE | 2018-10-06 12:22 | EKG ---
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1955 Requested By: Rachel Gambino Order Number: [id number] MD: Jeremie Mcclendon Measurements Intervals [place] Rate: 96 P: -2 NC: 143 QRS: -80 QRSD: 138 T: 54 QT: 410 QTc: 519 Interpretive Statements Sinus rhythm Atrial premature complexes RBBB and LAFB Compared to ECG 08/06/2018 23:51:41 Atrial premature complex(es) now present Electronically Signed On 10-06-2018 12:22:47 CDT by Jeremie Mcclendon [email or web address] <ELECTRONICALLY SIGNED> By: Jeremie Mcclendon MD, [facility] 10/06/18 1222 0147 0147 Jeremie Mcclendon MD, [facility] /EPI
--- NOTE | 2018-10-06 12:28 | EKG ---
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
[2018-10-06 16:04] LABS: MAGNESIUM 1.8 mg/dL (1.8-2.4); POTASSIUM 3.7 mmol/L (3.5-5.1)
[2018-10-07] VITALS (7 sets, daily range): BP systolic 100–143; BP diastolic 45–66
[2018-10-07 04:42] LABS: HEMATOCRIT 25.3 % (42.0-52.0); HEMOGLOBIN 8.3 gm/dL (14.0-18.0); MCH 27.7 pg (26.0-34.0); MCHC 32.9 g/dL (28.0-37.0); MCV 84.2 fL (80.0-100.0); MPV 9.2 fl. (7.2-11.1); RBC 3.01 mil/uL (4.50-6.00); RDW-CV 21.7 % (10.5-14.5)
[2018-10-07 04:48] LABS: WBC 1.9 thou/uL (4.0-11.0)
[2018-10-07 05:04] LABS: ALBUMIN 1.9 g/dL (3.4-5.0); CALCIUM 7.3 mg/dL (8.5-10.1); CREATININE 0.8 mg/dL (0.6-1.3); MAGNESIUM 1.7 mg/dL (1.8-2.4); PHOSPHORUS* 2.2 mg/dL (2.5-4.9); TOTAL BILIRUBIN 0.9 mg/dL (<0.1-1.0)
[2018-10-07] MEDS ORDERED: SPIRONOLACTONE25 MG PO (07:18)
[2018-10-07] MEDS ORDERED: NEXIUM40 MG PO (07:18)
[2018-10-07] MEDS ORDERED: LASIX 20 MG TAB20 MG PO (07:18)
--- NOTE | 2018-10-07 15:30 | 2DMMODE ---
[place] [address] 2 D/M-MODE ECHOCARDIOGRAM Name: JOSIAH KOHLI Room: [address] IN [facility]#: [id number] Admission: 10/04/18 Attend Phys: Cat Patricia, Discharge: Date of : 59 Date of Service: 10/07/18 1530 Report #: [id number] THIS REPORT FOR: //name// APPROVED REPORT Study performed: 10/07/2018 09:16:56 EXAM: Comprehensive 2D, Doppler, and color-flow Echocardiogram Patient Location: In-Patient Room #: 002 Status: routine BSA: 1.93 HR: 99 bpm BP: 100/58 mmHg Rhythm: NSR Other Information Study Quality: Fair Technically limited study due to uncooperative patient, inability to position patient. Indications Dyspnea Rule out valvular vegetation 2D Dimensions IVSd: 7.61 (7-11mm) LVOT Diam: 19.52 (18-24mm) LVDd: 43.87 mm PWd: 7.95 (7-11mm) LVDs: 20.03 (25-40mm) Volumes Left Atrial Volume (Systole) LA ESV Index: 21.90 mL/m2 Aortic Valve AoV Peak Carlos.: 2.48 m/s AO Peak Gr.: 24.50 mmHg LVOT Max P.63 mmHg AO Mean Gr.: 15.27 mmHg LVOT Mean P.29 mmHg LVOT Max V: 1.38 m/s AO V2 VTI: 47.14 cm LVOT Mean V: 0.97 m/s ABDULAZIZ (VTI): 1.64 cm2 LVOT V1 VTI: 25.87 cm Mitral Valve E/A Ratio: 0.84 [place] [address] 2 D/M-MODE ECHOCARDIOGRAM Name: JOSIAH KOHLI Room: [address] IN ..#: [id number] Admission: 10/04/18 Attend Phys: Cat Patricia, Discharge: Date of : 59 Date of Service: 10/07/18 1530 Report #: [id number] MV Decel. Time: 207.19 ms MV E Max Carlos.: 0.85 m/s MV PHT: 60.09 ms MVA (PHT): 3.66 cm2 TDI E/Lateral E': 10.63 E/Medial E': 10.63 Medial E' Carlos.: 0.08 m/s Lateral E' Carlos.: 0.08 m/s Pulmonary Valve PV Peak Carlos.: 1.30 m/s PV Peak Gr.: 6.71 mmHg Left Ventricle The left ventricle is normal size. There is normal LV segmental wall motion. There is normal left ventricular wall thickness. Left ventricular systolic function is normal. LVEF is >70%. Grade I - abnormal relaxation pattern. Right Ventricle The right ventricle is normal size. The right ventricular systolic function is normal. Atria The left atrium size is normal. The right atrium size is normal. Aortic Valve Aortic valve leaflets are mildly thickened. No aortic regurgitation is present. Mild aortic stenosis. Mitral Valve The mitral valve is normal in structure. There is no mitral valve regurgitation noted. No evidence of mitral valve stenosis. Tricuspid Valve The tricuspid valve is normal in structure. Unable to assess PA pressure. Trace tricuspid regurgitation. Pulmonic Valve The pulmonary valve is normal in structure. There is no pulmonic valvular regurgitation. Great Vessels The aortic root is normal in size. IVC is normal in size and collapses >50% [place] [address] 2 D/M-MODE ECHOCARDIOGRAM Name: JOSIAH KOHLI Room: [address] IN [facility]#: [id number] Admission: 10/04/18 Attend Phys: Cat Patricia, Discharge: Date of : 59 Date of Service: 10/07/18 1530 Report #: [id number] Pericardium There is no pericardial effusion. <Conclusion> The left ventricle is normal size. There is normal left ventricular wall thickness. Left ventricular systolic function is normal. LVEF is >70%. There is normal LV segmental wall motion. Grade I - abnormal relaxation pattern. Aortic valve leaflets are mildly thickened. Trace tricuspid regurgitation. No obvious valvular vegetations noted. Recommend MICHAEL if clinically indicated to further evaluate for vegetations if clinically indicated. <ELECTRONICALLY SIGNED> By: Greg Guzmán MD, FACC 10/07/18 1530 1530 1530 Greg Guzmán MD, FACC /INF
[2018-10-08] VITALS: BP 142/62
[2018-10-08 04:00] VITALS: BP 132/66
[2018-10-08 05:32] LABS: HEMATOCRIT 23.9 % (42.0-52.0); HEMOGLOBIN 7.8 gm/dL (14.0-18.0); MCH 27.2 pg (26.0-34.0); MCHC 32.7 g/dL (28.0-37.0); MCV 83.4 fL (80.0-100.0); MPV 9.5 fl. (7.2-11.1); RBC 2.86 mil/uL (4.50-6.00); RDW-CV 21.4 % (10.5-14.5)
[2018-10-08 05:34] LABS: WBC 1.8 thou/uL (4.0-11.0)
[2018-10-08 05:40] LABS: CALCIUM 7.5 mg/dL (8.5-10.1); CREATININE 0.7 mg/dL (0.6-1.3); MAGNESIUM 1.5 mg/dL (1.8-2.4); POTASSIUM 4.1 mmol/L (3.5-5.1)
[2018-10-08 08:00] VITALS: BP 109/60
[2018-10-08] MEDS ORDERED: MAGOX 400400 MG PO (08:47)
[2018-10-08] MEDS ORDERED: INDERAL LA60 MG PO (08:47)
--- NOTE | 2018-10-08 11:07 | PATH ---
[address] [address] PATHOLOGY RPT PROCEDURE Name: KAMILLAJOSIAH Pruitt Room: [address] IN [facility]#: [id number] Admission: 10/04/18 Date of : 59 Discharge: Report #: [id number] Path Case #: [id number] Note [facility] Accession Number: [id number] TESTS RESULT FLAG UNITS REF RANGE LAB Clinician Provided Cytology Information No. of containers..01 Other (Miscellaneous) Source: PERITONEAL DIAGNOSIS: 02 PERITONEAL NEGATIVE FOR MALIGNANT CELLS. MESOTHELIAL CELLS AND FEW INFLAMMATORY CELLS, PREDOMINANTLY CHRONIC. Signed out by: 02 Clifford Núñez MD, Pathologist NPI- [id number] Performed by: 01 Sara Escamilla, [employer] ([facility]) Gross description: 01 50ML, YELLOW, CLEAR /LCS FLAG LEGEND: L-Low Normal,H-High Normal,LL-Alert Low,HH-Alert High <-Panic Low,>-Panic High,A-Abnormal,AA-Critical Abnormal Performed at: 01 [facility] [address] [place] [address] Ervin Rivera MD, [address] [address] Clifford Núñez MD, Specimen Comment: A courtesy copy of this report has been sent to Specimen Comment: [phone]. Specimen Comment: Report sent to Performed at: 01 [facility] [address], [place], [place] [id number] MD Ervin Rivera MD Phone: [phone]
[2018-10-08 11:30] VITALS: BP 109/58
[2018-10-08 16:00] VITALS: BP 87/38
[2018-10-08 19:30] VITALS: BP 102/52
[2018-10-09] VITALS (7 sets, daily range): BP systolic 77–94; BP diastolic 39–53
[2018-10-09] MEDS ORDERED: AMPICILLIN TRI500 MG PO (10:07)
[2018-10-09] MEDS ORDERED: PROBIOTIC1 EAC1 PO (10:07)
[2018-10-09] MEDS ORDERED: VITAMIN B-1100 M1 PO (10:07)
== END 2018-10-09 13:30 | disposition home or self-care (01) | DRG 871 ==
LOC: M.ERS 01:04 → M.TBA-ER 04:23 → M.ICU 04:23 → M.2W 04:23 → M.ERS 04:55 → M.2W 05:24 → M.ICU 15:42 → M.2W 10-07 11:14
PROVIDERS: Family Medicine; Internal Medicine; Personal Emergency Response Attendant; ADMIT Internal Medicine
PROC: 06HY33Z Insertion of Infusion Device into Lower Vein, Percutaneous Approach (ICD-10-PCS; principal; 2018-10-04)
PROC: 0W9G3ZZ Drainage of Peritoneal Cavity, Percutaneous Approach (ICD-10-PCS; 2018-10-06)
DX: A40.1 Sepsis due to streptococcus, group B (principal); R65.21 Severe sepsis with septic shock; I50.30 Unspecified diastolic (congestive) heart failure; D61.818 Other pancytopenia; G93.40 Encephalopathy, unspecified; M10.9 Gout, unspecified; J44.9 Chronic obstructive pulmonary disease, unspecified; I11.0 Hypertensive heart disease with heart failure; K70.31 Alcoholic cirrhosis of liver with ascites; E87.6 Hypokalemia; E83.42 Hypomagnesemia; F17.210 Nicotine dependence, cigarettes, uncomplicated; F10.129 Alcohol abuse with intoxication, unspecified; K42.9 Umbilical hernia without obstruction or gangrene; K70.10 Alcoholic hepatitis without ascites; Z86.19 Personal history of other infectious and parasitic diseases; Z91.19 Patient's noncompliance with other medical treatment and regimen; Z79.899 Other long term (current) drug therapy